=== PATIENT | female | born 1955 | race Caucasian/White ===

== ENCOUNTER 2016-12-20 10:33 | Day surgery (SDC) | payer MEDICAID ==
[2016-12-20] MEDS ORDERED: LR 1,000 ML IV ONE (11:06)
--- NOTE | 2016-12-20 11:48 | PDANEPAE ---
ANE History of Present Illness 60 yo F here for screening colonoscopy ANE Past Medical History - Cardiovascular History Hx Hypertension: Yes Hx Arrhythmias: No Hx Chest Pain: No Hx Coronary Artery / Peripheral Vascular Disease: No Hx CHF / Valvular Disease: No Hx Palpitations: No - Pulmonary History Hx COPD: No Hx Asthma/Reactive Airway Disease: No Hx Recent Upper Respiratory Infection: No Hx Oxygen in Use at Home: No - Neurologic History Hx Cerebrovascular Accident: No Hx Seizures: No Hx Dementia: No - Endocrine History Hx Diabetes: Yes - Renal History Hx Renal Disorders: No - Liver History Hx Hepatic Disorders: No - Neurological & Psychiatric Hx Hx Neurological and Psychiatric Disorders: Yes - Cancer History Hx Cancer: No - Congenital Disorder History Hx Congenital Disorders: No - GI History Hx Gastrointestinal Disorders: No - Chronic Pain History Chronic Pain: Yes (NT LT FOOT RESIDUAL NERVE ISSUSES POST LAMINECTOMY) ANE Review of Systems - Exercise capacity Exercise capacity: >=4 METS METS (RN): 4 METS - Systems Neurological: Reports: depressed, emotional problems ANE Patient History - Allergies Allergies/Adverse Reactions: No Known Allergies Allergy (Verified 08/04/15 16:08) - Home Medications Home medications: home medication list seen and reviewed Home Medications: Atorvastatin Calcium [Lipitor 10 mg (*)] 10 mg PO HS 03/16/15 [Last Taken ] Calcium Carb W/Vit D [Calcium Carb W/Vit D 500/200 (*)] 500 mg PO DAILY [Last Taken 12/13/16] Cholecalciferol Vit D3 [Vitamin D3 (*)] 2,500 units PO DAILY 03/16/15 [Last Taken 12/13/16] Herbals/Supplements -Info Only 1 ea PO DAILY 03/16/15 [Last Taken 12/13/16] Multivitamins [Multivitamin (*)] 1 each PO DAILY 03/16/15 [Last Taken 12/13/16] PARoxetine HCL [Paxil 30mg (*)] 30 mg PO DAILY06 03/16/15 [Last Taken 12/20/16] Metformin 1000 mg DAILY AT 6PM 04/09/16 [Last Taken 12/18/16] Advil PRN 12/05/16 [Last Taken 12/18/16] Hydrochlorothiazide DAILY06 12/05/16 [Last Taken 12/19/16] - NPO status NPO Since - Liquids (Date): 12/19/16 NPO Since - Liquids (Time): 23:00 NPO Since - Solids (Date): 12/19/16 NPO Since - Solids (Time): 09:00 - Anes Hx Anes Hx: no prior problems - Smoking Hx Smoking Status: Former smoker - Alcohol Use Alcohol Use: Occasionally - Family Anes Hx Family Anes Hx: none Family Hx Anesthesia Complications: NONE ANE Labs/Vital Signs - Vital Signs Blood Pressure: 140/80 Heart Rate: 68 Respiratory Rate: 14 O2 Sat (%): 95 Height: 162.56 cm Weight: 73.482 kg ANE Physical Exam - Airway Neck exam: FROM Mallampati Score: Class 2 Mouth exam: normal dental/mouth exam - Pulmonary Pulmonary: no respiratory distress, clear to auscultation - Cardiovascular Cardiovascular: regular rate and rhythym, no murmur, rub, or gallop - ASA Status ASA Status: II ANE Anesthesia Plan Anesthesia Plan: MAC
[2016-12-20] MEDS ORDERED: PROPOFOL/EMULSION 500 MG/50 ML BOTTLE IV ONE (11:50)
--- NOTE | 2016-12-20 12:02 | PDGENHP ---
History & Physical Chief Complaint: screening History of Present Illness: routine screening. hx dm, chol Pertinent Past, Social, Family History: no fhx cc. rare alcohol. no tobacco Relevant Physical Exam: A+Ox3. CTA. S1s2, RRR no m/r/g. +Bs, soft nt Cardiorespiratory Assessment: class 2 pt. CTA. S1S2s,RRR
[2016-12-20] MEDS ORDERED: ONDANSETRON 4 MG/2 ML VIAL IVP PRN (12:22)
[2016-12-20] MEDS ORDERED: NALOXONE HCL 0.4 MG/ML INJ IVP PRN (12:22)
[2016-12-20] MEDS ORDERED: ACETAMINOPHEN 500 MG TAB PO PRN (12:22)
--- NOTE | 2016-12-20 12:54 | POSTOPPROG ---
Post Op Note Date of Operation: 12/20/16 Surgeon: Nick Gutierrez Anesthesiologist: mirza Anesthesia: Other (Specify) (IV genreal) Pre-op Diagnosis: screening Post-op Diagnosis: left sided diverticulosis, no polyps Indication: screening Procedure: colonoscopy Findings: diverticulosis Inf/Abcess present in the surg proc area at time of surgery?: No EBL: none Total fluids administered: 400 cc Complications: none immediate
[2016-12-20 13:30] VITALS: PULSE 50; RESP 15; TEMP 97
[2016-12-20 13:52] VITALS: BP 137/72; O2SAT 95
--- NOTE | 2016-12-20 14:16 | GPN ---
[f rep st] PROCEDURE NOTE DATE OF PROCEDURE: 12/20/2016 PROCEDURE PERFORMED: Total colonoscopy. INDICATIONS: Screening. PREOPERATIVE DIAGNOSIS: Rule out polyps. POSTOPERATIVE DIAGNOSIS: 1. Left-sided diverticulosis. 2. No polyps or masses noted. 3. No colitis. INFORMED CONSENT: I had a detailed discussion with the patient regarding the procedure, alternative s, benefits, and risks including bleeding, perforation, reaction to medication. Informed consent wa s signed and witnessed. COMPLICATIONS: None immediate. MEDICATIONS: IV general as per Jb Nicole MD. DESCRIPTION OF PROCEDURE: After adequate sedation, the patient remained in the left lateral decubit us position and I performed a visual and digital anorectal examination. The video colonoscope was t hen inserted via the rectum and advanced under direct visualization into the terminal ilium. I iden tified the cecum by the ileocecal valve, appendiceal orifice, and confluence of teniae. I performed a retroflexed examination in the cecum. Once I un-retroflexed the endoscope, I was slowly withdraw ing the endoscope with careful attention made to mucosal detail. The prep was only fair on the righ t side and I performed multiple washings to obtain an adequate view of the tissue. The patient did not have any polyps, masses, or colitis. There was left-sided diverticulosis with numerous divertic obi noted in the sigmoid and descending colon. A retroflexed examination of the rectum was performe d. The endoscope was un-retroflexed and advanced back into the distal ascending colon, where air wa s withdrawn. I withdrew most of the air from the colon and removed the endoscope, confirming the ab ove findings. The patient tolerated the procedure well and was transferred to the recovery room in satisfactory condition. IMPRESSION: 1. Left-sided diverticulosis. 2. No polyps or masses. RECOMMENDATIONS: 1. A high fiber, high fluid diet. 2. There is no need to avoid seeds and nuts with diverticulosis, just chew them well. 3. Repeat colonoscopy in 10 years. 4. Follow up with primary care physician as scheduled. Thank you for allowing me to participate in this patient's healthcare. Do not hesitate to call me w ith any questions. /[id number]/MODL
== END 2016-12-20 13:51 | disposition home or self-care (01) ==
LOC: FSGY 10:33
PROVIDERS: ATTEND Internal Medicine Gastroenterology
PROC: 0DJD8ZZ Inspection of Lower Intestinal Tract, Via Natural or Artificial Opening Endoscopic (ICD-10-PCS; principal; 2016-12-20 12:00)
DX: Z12.11 Encounter for screening for malignant neoplasm of colon (principal); K57.30 Diverticulosis of large intestine without perforation or abscess without bleeding; I10 Essential (primary) hypertension
CPT/HCPCS: J2704

== ENCOUNTER → 2017-07-22 | Outpatient (CLI) | payer MEDICAID | LOC: FIMAGING 13:38 | PROVIDERS: ATTEND Physician Assistant | DX: Z12.31 Encounter for screening mammogram for malignant neoplasm of breast (principal); Z80.3 Family history of malignant neoplasm of breast ==

== ENCOUNTER → 2017-08-01 | Outpatient (CLI) | payer MEDICAID | LOC: FIMAGING 13:55 | PROVIDERS: ATTEND Physician Assistant | DX: R92.8 Other abnormal and inconclusive findings on diagnostic imaging of breast (principal) ==

== ENCOUNTER → 2018-07-29 | Outpatient (CLI) | payer MEDICAID | LOC: FIMAGING 15:49 | PROVIDERS: ATTEND Physician Assistant | DX: Z12.31 Encounter for screening mammogram for malignant neoplasm of breast (principal); Z80.3 Family history of malignant neoplasm of breast ==

== ENCOUNTER 2018-09-17 10:04 | Emergency (ER) | payer MEDICAID ==
[2018-09-17 10:09] VITALS: BP 152/63
--- NOTE | 2018-09-17 10:18 | EDPHY ---
H & P Time Seen by Provider: 09/17/18 10:10 HPI/ROS: CHIEF COMPLAINT: Right wrist pain x4 days HISTORY OF PRESENT ILLNESS: 62-year-old [id number] female states that 4 days ago she was throwing a ball and accidentally impacted her right wrist against a wall. She has been complaining of reproducible right wrist pain ever since, reproducible with palpation range of motion. No paresthesia. No foosh. PRIMARY CARE PROVIDER: REVIEW OF SYSTEMS: A ten point review of systems was performed and is negative with the exception of the items mentioned in the HPI PHYSICAL EXAM (Prior to examination, patient consented to physical exam, hands were washed and my usual and customary physical exam procedures followed) 1) GENERAL: Well-developed, well-nourished, alert and oriented. Appears to be in no acute distress. 2) HEAD: Normocephalic 3) HEENT: Pupils equal, round, reactive to light bilaterally. 4) LUNGS: Breathing comfortably. 5) MUSCULOSKELETAL: Tender to palpation anatomic snuffbox. No deformity no angulation. Soft compartments. Normal coloration. 6) SKIN: Intact 7) VASCULAR: pulses and cap refill present are brisk 8) NEUROLOGIC: Radial, ulnar, median nerve function intact with no deficits appreciated on exam DIFFERENTIAL DIAGNOSIS: in no particular order including but not limited to fracture, sprain, compartment syndrome Procedure: Splint A Velcro thumb spica splint was applied by ER aircraft maintenance technician. After application of the splint I returned and re-examined the patient. The splint was adequately immobilizing the joint and distal to the splint the patient's circulation and sensation were intact. Patient shows no signs of compartment syndrome. Was given orthopedic precautions. Smoking Status: Former smoker Constitutional: Initial Vital Signs Temperature (C) 36.9 C 09/17/18 10:06 Heart Rate 60 09/17/18 10:06 Respiratory Rate 14 09/17/18 10:06 Blood Pressure 152/63 H 09/17/18 10:06 O2 Sat (%) 98 09/17/18 10:06 O2 Delivery Mode Room Air Allergies/Adverse Reactions: No Known Allergies Allergy (Verified 08/04/15 16:08) Home Medications: Medication Instructions Recorded Atorvastatin Calcium [Lipitor 10 10 mg PO HS 03/16/15 mg (*)] Calcium Carb W/Vit D [Calcium Carb 500 mg PO DAILY 03/16/15 W/Vit D 500/200 (*)] Cholecalciferol Vit D3 [Vitamin D3 2,500 units PO DAILY 03/16/15 (*)] Herbals/Supplements -Info Only 1 ea PO DAILY 03/16/15 Multivitamins [Multivitamin (*)] 1 each PO DAILY 03/16/15 PARoxetine HCL [Paxil 30mg (*)] 30 mg PO DAILY06 03/16/15 Metformin 1000 mg DAILY AT 6PM 04/09/16 Advil PRN 12/05/16 Hydrochlorothiazide DAILY06 12/05/16 MDM/Departure - [facility] Imaging Results: Imaging Impressions Wrist X-Ray 09/17/18 10:13 Impression: Negative. No acute fracture. Images reviewed myself ED Course/Re-evaluation: 10:44 a.m.: Re-evaluation with serial exams. Soft compartments. Neurovascular intact. No median nerve deficits. Discussed with patient her imaging results. No definitive fracture identified on x-ray . She is focally tender to palpation anatomic snuffbox. She has been immobilized. Discussed with the patient limitations of x-ray. This discussed with patient that occult fracture particularly of the scaphoid bone, not ruled out. Stressed the importance of follow-up with orthopedics and provided this referral information. She feels comfortable being discharged. Patient feels comfortable being discharged. All questions and concerns addressed by myself. Patient given my usual and customary discharge precautions and instructions regarding their clinical impression. Care of patient under supervision of primary supervising physician Dr Brewster . - Depart Disposition: Home, Routine, Self-Care Clinical Impression: Right wrist pain Condition: Good Instructions: Wrist Injury (ED) Additional Instructions: Return to the ER immediately if you experience discoloration, have worsening pain, numbness, tingling, or any other symptoms that concern you. If you received x-rays in the emergency department today, be advised, that ligamentous , tendon, muscular, and other non-bony injury cannot be fully ruled out. [Try to keep your affected extremity elevated above the level of your chest, and keep cold packs on the affected area, for the next 48 hours.] Referrals: Lacho Conn MD [Medical Doctor] - 2-3 days, call for appt.
== END 2018-09-17 10:57 | disposition home or self-care (01) ==
DX: S69.91XA Unspecified injury of right wrist, hand and finger(s), initial encounter (principal); W22.8XXA Striking against or struck by other objects, initial encounter; Y99.9 Unspecified external cause status; Y93.89 Activity, other specified
CPT/HCPCS: L3807